=== PATIENT | female | born 1990 | race Two or more races ===

== ENCOUNTER 2024-03-16 21:20 | Emergency (ER) | payer OTHER ==
[~2024-03-16] VITALS: Ht 154.9 cm; Wt 61.8 kg
[2024-03-16 21:56] VITALS: BP 95/56; PULSE 64; RESP 20; TEMP 97.9
== END 2024-03-16 23:50 | disposition home or self-care (01) ==
LOC: EMS 21:20
DX: T59.891A Toxic effect of other specified gases, fumes and vapors, accidental (unintentional), initial encounter (principal); Z88.8 Allergy status to other drugs, medicaments and biological substances
CPT/HCPCS: 99281; Z7502